=== PATIENT | male | born 1975 | race Two or more races ===

== ENCOUNTER 2018-10-14 00:56 | Emergency (ER) | payer SELFPAY ==
[2018-10-14 01:08] VITALS: BP 136/89; PULSE 92; RESP 17; TEMP 98.6; O2SAT 98
--- NOTE | 2018-10-14 01:31 | ED PDOC ---
HPI: Psych/Substance Abuse Time Seen by Provider: 10/14/18 01:01 Chief Complaint (Nursing): Alcohol Ingestion Chief Complaint (Provider): Alcohol Ingestion History Per: Patient History/Exam Limitations: no limitations Onset/Duration Of Symptoms: Hrs (EDUCATIONAL ADMINISTRATOR) Current Symptoms Are (Timing): Still Present Modifying Factor(s): Alcohol Additional Complaint(s): 43 year old male with no PMHx presents to the ED for ETOH intoxication. . PMD: none provided Past Medical History Reviewed: Historical Data, Nursing Documentation, Vital Signs Vital Signs: Last Vital Signs Temp 98.6 F 10/14/18 01:00 Pulse 92 H 10/14/18 01:00 Resp 17 10/14/18 01:00 BP 136/89 10/14/18 01:00 Pulse Ox 98 10/14/18 01:00 - Medical History PMH: No Chronic Diseases - Surgical History Surgical History: No Surg Hx - Family History Family History: States: Unknown Family Hx - Social History Alcohol: Other (yes) - Allergies Allergies/Adverse Reactions: Allergies Allergy/AdvReac Type Severity Reaction Status Date / Time Penicillins Allergy ITCHING Verified 10/14/18 01:08 Review of Systems ROS Statement: Except As Marked, All Systems Reviewed And Found Negative Physical Exam - Reviewed Nursing Documentation Reviewed: Yes Vital Signs Reviewed: Yes - Physical Exam Appears: Positive for: No Acute Distress (vitals normal) Head Exam: Positive for: ATRAUMATIC, NORMOCEPHALIC Skin: Positive for: Normal Color, Warm, Dry Eye Exam: Positive for: EOMI, Normal appearance, PERRL Extremity: Positive for: Normal ROM (upper and lower). Negative for: Pedal Edema, Deformity Neurologic/Psych: Positive for: Alert, Oriented (x3), Gait (steady), Other ( speech clear) - ECG O2 Sat by Pulse Oximetry: 98 (RA) Pulse Ox Interpretation: Normal Medical Decision Making Medical Decision Making: Time: 108 Impression: 43 y/o for eval of alcohol use w/o complaint Patient has no medical complaints with a steady gait. He is declining any medical intervention and would like to take an Uber home Dx Alcohol use Scribe Attestation: Documented by Adela Johnson, acting as a scribe for Roderick Cardozo MD. Provider Scribe Attestation: All medical record entries made by the Scribe were at my direction and personally dictated by me. I have reviewed the chart and agree that the record accurately reflects my personal performance of the history, physical exam, medical decision making, and the department course for this patient. I have also personally directed, reviewed, and agree with the discharge instructions and disposition. Disposition - Clinical Impression Clinical Impression: Alcohol use - Disposition Disposition: Routine/Home Disposition Time: 01:45 Condition: STABLE Instructions: Alcohol Use - When Is Drinking a Problem? Forms: [employer] (Y[place]i)
== END 2018-10-14 01:25 | disposition home or self-care (01) ==
LOC: H.ER 00:56
DX: F10.10 Alcohol abuse, uncomplicated (principal); Z88.0 Allergy status to penicillin